=== PATIENT | female | born 1960 | race Caucasian/White ===

== ENCOUNTER 2022-10-15 16:02 | Outpatient (REF) | payer BC, SELFPAY ==
[2022-10-15 22:14] LABS: Rheumatoid Factor <8.6 IU/mL (<12.0)
[2022-10-18 07:50] LABS: IgE <2 IU/mL (<158)
[2022-10-18 09:07] LABS: Cyclic Citrullinated Peptide <2.5 U/mL (<5.0)
[2022-10-18 12:22] LABS: IgA 192 mg/dL (85-499); IgG 1037 mg/dL (610-1616); IgM 237 mg/dL (35-242)
[2022-10-18 14:18] LABS: ANA Interpretation Negative (Negative)
[2022-10-20 15:54] LABS: Alter tenuis/alternata IgG 6.6 mcg/mL (<12.0); Aspergillus fumigatus IgG 74.8 mcg/mL (<46.0); Aureobasidium pullulans IgG 8.9 mcg/mL (<18.0); Laceyella sacchari IgG <2.0 mcg/mL (<25.0); Micropolyspora faeni IgG <2.0 mcg/mL (<5.0); Penicillium Chrysogenum IgG 31.7 mcg/mL (<22.0); Phoma betae IgG 8.8 mcg/mL (<8.0)
== END 2022-10-15 16:03 | disposition home or self-care (01) ==
LOC: LBN 16:02
PROVIDERS: PCP Neuromusculoskeletal Medicine & OMM; Visit Provider Student in an Organized Health Care Education/Training Program
DX: J84.9 Interstitial pulmonary disease, unspecified (principal); J18.9 Pneumonia, unspecified organism
CPT/HCPCS: 82784; 86001; 86200; 82785; 82787; 86038; 86431

== ENCOUNTER 2023-08-12 10:18 | Outpatient (CLI) | payer BC, SELFPAY ==
[2023-08-15 18:08] LABS: Alternaria Tenuis IgE <0.10 kU/L (<0.70); Aspergillus Fumigatus IgE <0.10 kU/L (<0.70); Bermuda Grass IgE <0.10 kU/L (<0.70); Cocklebur IgE <0.10 kU/L (<0.70); Cockroach IgE <0.10 kU/L (<0.70); Cottonwood IgE <0.10 kU/L (<0.70); D Farinae IgE <0.10 kU/L (<0.70); D Pteronyssinus IgE <0.10 kU/L (<0.70); Eastern Sycamore IgE <0.10 kU/L (<0.70); Elm IgE <0.10 kU/L (<0.70); Epicoccum purpurascens IgE <0.10 kU/L (<0.70); Fusarium moniliforme, IgE <0.10 kU/L (<0.70); Giant Ragweed IgE <0.10 kU/L (<0.70); Lamb's Quarter IgE <0.10 kU/L (<0.70); Oak IgE <0.10 kU/L (<0.70); Penicillium chrysogenum IgE <0.10 kU/L (<0.70); Red Sorrel IgE <0.10 kU/L (<0.70); Rough Pigweed IgE <0.10 kU/L (<0.70); Short Ragweed IgE <0.10 kU/L (<0.70); Silver Birch IgE <0.10 kU/L (<0.70); Stemphyllium IgE <0.10 kU/L (<0.70); Timothy Grass IgE <0.10 kU/L (<0.70); Walnut Tree IgE <0.10 kU/L (<0.70); Wormwood IgE <0.10 kU/L (<0.70)
[2023-08-15 19:57] LABS: Cat Epithelium IgE <0.10 kU/L (<0.70); Cladosporium IgE <0.10 kU/L (<0.70); Dog Dander IgE <0.10 kU/L (<0.70)
[2023-08-17 16:29] LABS: CLASS 0; Rhodotorula IgE <0.35 kU/L (<0.35)
[2023-08-17 16:33] LABS: CLASS 0; Cedar Red IgE <0.10 kU/L (<0.35)
== END 2023-08-12 10:19 | disposition home or self-care (01) ==
LOC: LBO 10:19
PROVIDERS: Visit Provider Otolaryngology Otolaryngology/Facial Plastic Surgery
DX: J18.9 Pneumonia, unspecified organism (principal); J30.9 Allergic rhinitis, unspecified; R91.1 Solitary pulmonary nodule
CPT/HCPCS: 36415; 86003

== ENCOUNTER 2024-01-30 10:59 | Day surgery (SDC) | payer BC, SELFPAY ==
[2024-01-30] VITALS (8 sets, daily range): BP systolic 115–131; BP diastolic 59–91; PULSE 49–59; RESP 11–20; TEMP 36.4–36.7; O2SAT 97–99; BMI 17.1
--- NOTE | 2024-01-30 11:35 | W.ANESPRE ---
General Info Date of Service Date Performed: 01/30/24 Height: 5 ft 6 in Weight: 48.2 kg Body Mass Index (BMI): 17.1 Surgical Procedure: Operation Date: 01/30/24 12:10 Proposed Procedure Side Surgeon p Bronchoscopy w/FELI Granados MD Meds Allergies and Home Medications Allergies Allergy/AdvReac Type Severity Reaction Status Date / Time levofloxacin AdvReac Unknown Throat Verified 01/30/24 11:21 tightness morphine AdvReac Unknown vomiting Verified 01/30/24 11:21 Home Medication Medication Instructions Recorded acetaminophen 500 mg tablet 500 mg PO DIRECTED 09/08/22 albuterol sulfate 90 mcg/actuation 2 puff inhalation Q4H PRN 09/08/22 aerosol inhaler fluticasone furoate 200 1 inh inhalation DAILY 09/08/22 mcg-vilanterol 25 mcg/dose inhalation powder (Breo Ellipta) ibuprofen 200 mg tablet See Rx Instructions PO DIRECTED 09/08/22 levothyroxine 50 mcg tablet 50 mcg PO DAILY 09/08/22 (Euthyrox) metoprolol succinate 25 mg 25 mg PO DAILY 12/14/22 tablet,extended release 24 hr ipratropium 0.5 mg-albuterol 3 mg 3 ml inhalation QID PRN 12/15/23 (2.5 mg base)/3 mL nebulization soln Current Visit Medications: Current Medications Generic Name Dose Route Start Last Admin Trade Name Freq PRN Reason Stop Dose Admin Albuterol/Ipratropium 3 ml 01/30/24 10:44 Albuterol/Ipratropium 3 Ml Upd Vial UPD 02/29/24 10:43 Q2H PRN PRN Ringer's Solution 1,000 mls @ 30 mls/hr 01/30/24 06:00 IV 01/30/24 23:59 INFUSION DANITA IV Miscellaneous Supplies 1 each 01/30/24 06:00 Iv Access IV 01/30/24 23:59 DIRECTED DANITA Sodium Chloride 0 ml 01/30/24 06:00 Normal Saline Flush 10 Ml Syr IV 01/30/24 23:59 PRN PRN Sodium Chloride 0 ml 01/30/24 06:00 Normal Saline 10 Ml Vial IJ 01/30/24 23:59 DIRECTED PRN Sterile Water 0 ml 01/30/24 06:00 Water,Injection,Sterile 10 Ml Vial IJ 01/30/24 23:59 DIRECTED PRN PFSH Active Problems Active Problems: Problem Status Onset Code Allergic rhinitis J30.9 Asthma J45.909 Hypersensitivity pneumonitis J67.9 Recurrent pneumonia J18.9 Pulmonary nodule R91.1 Interstitial lung disease J84.9 Uterovaginal prolapse, incomplete N81.2 Sighing respiration R06.89 Pneumonia J18.9 Pain in right hand M79.641 Neck pain M54.2 Hypothyroidism E03.9 Hyperlipidemia E78.5 Ganglion and cyst of synovium, tendon and bursa M67.49, M67.89, M71.39 Dupuytren's disease of palm M72.0 Cough R05.9 Closed fracture of base of metacarpal bone S62.319A Chest pain R07.9 Bronchiectasis J47.9 Anemia D64.9 Medical History Medical History Pulmonary nodule, right Lung nodule seen on imaging study Surgical History Surgical History H/O: hysterectomy History of appendectomy 1977 H/O hernia repair 2002 History of colonoscopy 03/05/19 Tobacco Smoking/Tobacco Use Status: Never Alcohol Alcohol Intake: current Alcohol intake frequency: a few times a month Alcohol type: wine Substance Use Substance use type: does not use Vital Signs and Lab Results Vital Signs Most Recent Vital Signs in EMR: Most Recent Vital Signs Temp Pulse Resp BP Pulse Ox 36.5 C 56 L 16 127/68 98 01/30/24 11:18 01/30/24 11:18 01/30/24 11:18 01/30/24 11:18 01/30/24 11:18 Lab Results Blood Type / Crossmatch: No Data to Display Complete Blood Count: No Data to Display Complete Metabolic Panel: No Data to Display Liver Function Panel: No Data to Display Coagulation Panel: No Data to Display Cardiac Panel: No Data to Display Arterial Blood Gas: No Data to Display Venous Blood Gas: No Data to Display Pancreas Panel: No Data to Display Thyroid Panel: No Data to Display Infectious Disease: No Data to Display Blood Cultures: No Data to Display Toxicology Panel: No Data to Display Anesthesia Assessment and Plan Anesthesia History Personal History: No History of Anesthesia Complications Family History: No Family History of Anesthesia Complications Exercise Tolerance Exercise Tolerance: Metabolic Equivalents<4 Pertinent Negatives Pertinent Negatives: No Symptoms of GERD Cardiac & Pulmonary Exam Cardiac Exam: Normal S1/S2 Heart Sounds Pulmonary Exam: Other (Clear with decreased right base) Implantable Cardiac Device Does patient have a Pacemaker or an ICD?: No Airway Exam Known Difficult Airway: No Mallampati Class: 2 Mouth Opening: Normal (> 3cm) Thyromental Distance: Greater than 3 cm Neck Range of Motion: Full ROM Neck Circumference: Normal Teeth Condition: Normal Dentition ASA Classification ASA Score: ASA 2 Emergency Case?: No NPO Status NPO Status: NPO Clears >2 hours, Solids >8 hours Anesthesia Plan Resuscitation Status: Full Code Anesthesia Technique: General Anesthesia Airway Planned: Natural Airway Monitors Used: Standard Monitors
[2024-01-30] MEDS: Lactated Ringers 1,000 ML 30 ML IV (11:46)
--- NOTE | 2024-01-30 11:57 | W.PM.OP ---
Date of service: 01/30/24 Time of Service: 12:24 Operative Note Operative Note Refer to Anesthesia Record Procedure Description: Bronchoscopy Indication: Pulmonary consolidations Procedure performed: Flexible bronchoscopy with BAL Sedation plan: General Informed consent was obtained after the risks and benefits or the procedure were discussed. Anesthesia sedated and intubated the patient with an 8.0 ETT. A proper and complete OR compliant time out was performed. The therapeutic 6.2mm Olympus bronchoscope was inserted the endotracheal tube and into the airways, where 3cc in total of 1% topical lidocaine was used the anesthetize the airways. The trachea was midline and without lesion or injury. The mucosa appeared normal and there were no signs of tracheomalacia. The lilo was sharp. All bronchial subsegments were visualized within each lobe and showed normal anatomy without injury or lesion. There were some endobronchial outpouchings which were not vascularized and deemed to be likely cartilaginous and externally pushing. A bronchoalveolar lavage was performed in the LLL. A total of 120cc of saline was administered with a return of 35cc. The fluid was slightly cloudy in appearance with visible mucus plugging. The bronchoscope was then removed and the case terminated. The patient was taken to PACU in stable condition. Samples collected:LLL BAL, bronchial washings Testing ordered: cell diff, silver stain, cytopathology, bacterial, fungal and AFB cultures. Complications:None Claudia Granados MD Pulmonary & Critical Care Medicine
[2024-01-30] MEDS: Lidocaine 1% Pres-Free 5 ML VIAL (12:37)
--- NOTE | 2024-01-30 12:38 | PAPNONF_PTH ---
PATIENT: Greer Atkinson LOC: [facility] U#:[id number] AGE/SX: 63/F ROOM: RE01/30/[address]: Claudia Granados MD : 1960 BED: DIS: 01/30/2024 SPEC #: [id number] RECD: 01/30/24 13:17 STATUS: GIGI REQ #: [id number] JOSE DE JESUS: 01/30/24 12:[address]: Claudia Granados DEPT: [facility] Cytology RECD BY: Candace Hartman ENTERED: 01/30/24 13:18 SP TYPE: PAPLINO POOLE DR: Clark Mejia Tissues: 1 - BODY FLUID CYTO(NOT S/U/N/EM)[facility] Procedures: BODY FLUID CYTO(NOT SPU/UR/NIP/ENDOM)[facility] SPECIAL STAIN 1 Comments: [id number] (TV = 10 ml, SENT FRESH) (REFRIGERATED)
--- NOTE | 2024-01-30 13:51 | W.ANESPOSTOP ---
Postoperative Evaluation Date, Time and Location Date Performed: 01/30/24 Time Performed: 13:51 Patient Location: Day Surgery Unit Vital Signs Most Recent Imported Vital Signs: Most Recent Vital Signs Temp Pulse Resp BP Pulse Ox 36.6 C 49 L 18 119/59 L 97 01/30/24 13:47 01/30/24 13:47 01/30/24 13:47 01/30/24 13:47 01/30/24 13:47 Pain Score Most Recent Pain Score: Most Recent Pain Score Pain Level 0 01/30/24 13:47 Assessment Mental Status: Awake (Alert & Oriented to Patient Baseline) Airway and Respiratory Function: Patent airway with normal (patient baseline) respiratory exam Cardiovascular Function: Hemodynamically Stable Hydration Status: Adequately Hydrated Nausea & Vomiting: No Nausea or Vomiting Pain: Pt. Denies Any Pain Peripheral Nerve Block: Patient did not receive a nerve block
[2024-01-30 18:02] LABS: Lymphocytes Fluid Relative 31 %; Mono/Macrophage Fluid Relative 45 %; Neutrophils Fluid Relative 22 %
[2024-02-01 08:47] LABS: Gram Smear Result Neutrophils Present
[2024-03-22 09:32] LABS: AFB Culture Result See Comments
[2024-03-22 09:34] LABS: AFB Culture Result See Comments
[2024-03-23 15:02] LABS: Fungal Culture & Smear See Comments
[2024-03-23 15:04] LABS: Fungal Culture & Smear See Comments
== END 2024-01-30 14:32 | disposition home or self-care (01) ==
PROVIDERS: PCP Family Medicine; Visit Provider Student in an Organized Health Care Education/Training Program
PROC: 0BJ08ZZ Inspection of Tracheobronchial Tree, Via Natural or Artificial Opening Endoscopic (ICD-10-PCS; CPT 31622; principal; 2024-01-30 12:00)
DX: R91.1 Solitary pulmonary nodule (principal); J67.9 Hypersensitivity pneumonitis due to unspecified organic dust; Z87.01 Personal history of pneumonia (recurrent); B37.1 Pulmonary candidiasis; J84.09 Other alveolar and parieto-alveolar conditions
CPT/HCPCS: 31624; 80162; 87070; 87102; 87107; 87116; 87205; 87206; 88104; 88312; J1100; J2001; J2003; J2704; J3010

== ENCOUNTER 2024-08-16 15:29 | Outpatient (REF) | payer BC, SELFPAY ==
[2024-08-16 11:08] LABS: Abs Immature Grans 0.02 10^3/uL (0.0-0.06); Absolute Basophil Count 0.04 10^3/uL (0.0-0.2); Absolute Eosinophil Count 0.39 10^3/uL (0.0-0.7); Absolute Lymphocyte Count 1.36 10^3/uL (1.2-3.4); Absolute Monocyte Count 0.38 10^3/uL (0.1-0.8); Absolute Neutrophil Count 4.43 10^3/uL (1.2-6.7); Basophils % 0.6 %; Eosinophils % 5.9 %; HCT 39.3 % (36.0-46.0); HGB 12.8 g/dL (11.2-15.7); Immature Grans % 0.3 %; Lymphocytes % 20.5 %; MCH 29.5 pg (27.0-33.0); MCHC 32.6 % (32.0-36.0); MCV 91 fL (80-95); MPV 9.8 fL (8.0-11.0); Monocytes % 5.7 %; Platelet Count 246 10^3/uL (130-400); RBC 4.34 10^6/uL (3.93-5.22); RDW 13.3 % (11.7-14.6); WBC 6.62 10^3/uL (4.4-10.8)
== END 2024-08-16 15:30 | disposition home or self-care (01) ==
LOC: LBN 15:29
PROVIDERS: PCP Family Medicine; Visit Provider Physician Assistant Surgical
DX: J67.9 Hypersensitivity pneumonitis due to unspecified organic dust (principal); J45.909 Unspecified asthma, uncomplicated; R91.1 Solitary pulmonary nodule; J30.9 Allergic rhinitis, unspecified
CPT/HCPCS: 85025

== ENCOUNTER 2024-12-05 12:54 | Outpatient (REF) | payer BC, SELFPAY ==
[2024-12-05 12:46] LABS: Abs Immature Grans 0.05 10^3/uL (0.0-0.06); Absolute Basophil Count 0.07 10^3/uL (0.0-0.2); Absolute Eosinophil Count 0.38 10^3/uL (0.0-0.7); Absolute Lymphocyte Count 1.42 10^3/uL (1.2-3.4); Absolute Monocyte Count 0.76 10^3/uL (0.1-0.8); Absolute Neutrophil Count 7.46 10^3/uL (1.2-6.7); Basophils % 0.7 %; Eosinophils % 3.7 %; HCT 39.5 % (36.0-46.0); HGB 12.8 g/dL (11.2-15.7); Immature Grans % 0.5 %; MCH 29.9 pg (27.0-33.0); MCHC 32.4 % (32.0-36.0); MCV 92 fL (80-95); MPV 10.3 fL (8.0-11.0); Monocytes % 7.5 %; Neutrophils % 73.6 %; Platelet Count 217 10^3/uL (130-400); RBC 4.28 10^6/uL (3.93-5.22); RDW 14.1 % (11.7-14.6); RDW-SD 47.8 fL; WBC 10.14 10^3/uL (4.4-10.8)
[2024-12-05 13:31] LABS: TSH 0.91 uIU/mL (0.36-3.74); Vitamin B12 514 pg/mL (193-986); Vitamin D 25 Total 22 ng/mL (30-100)
[2024-12-05 13:48] LABS: FREE T4 0.88 ng/dL (0.76-1.46)
[2024-12-05 22:36] LABS: T3,Free 3.8 pg/mL (2.8-5.3)
== END 2024-12-05 12:55 | disposition home or self-care (01) ==
LOC: LBN 12:54
PROVIDERS: PCP Family Medicine; Visit Provider Physician Assistant Surgical
DX: J45.909 Unspecified asthma, uncomplicated (principal); J67.9 Hypersensitivity pneumonitis due to unspecified organic dust; R91.1 Solitary pulmonary nodule; E03.9 Hypothyroidism, unspecified
CPT/HCPCS: 82306; 82607; 84439; 84443; 84481; 85025

== ENCOUNTER 2025-04-17 14:49 | Outpatient (CLI) | payer BC, SELFPAY ==
--- NOTE | 2025-04-17 11:45 | DI.RAD_ITS ---
Exam(s) XR CHEST 2V PA LATERAL EXAM: XR CHEST 2V PA LATERAL CLINICAL HISTORY: cough, hypersensitivity pneumonitis J67.9 TECHNIQUE: 2D digital imaging was performed. Two views. COMPARISON: CR XR CHEST 2VW (D) from 09/11/2023 CR XR CHEST 1 VW from 11/25/[address] CHEST WO CONTRAST from 11/25/2023 FINDINGS: HEART: Normal size. Aorta: Not dilated. PULMONARY VASCULATURE: Normal. MEDIASTINUM: Unremarkable. LUNGS: Chronic interstitial changes, greater in the upper lobes. Patchy infiltrate noted above the left diaphragm. PLEURAL SPACE: No pleural effusion or pneumothorax. BONE:Unremarkable for age. SOFT TISSUES: Unremarkable. IMPRESSION: Findings suspicious for left lower lobe infiltrate. DATA REPOSITORY: RADIATION DOSE DELIVERED:
== END 2025-04-17 15:09 ==
LOC: DI 14:51
PROVIDERS: PCP Family Medicine; Visit Provider Internal Medicine Pulmonary Disease
DX: J67.9 Hypersensitivity pneumonitis due to unspecified organic dust (principal)
CPT/HCPCS: 71046

== ENCOUNTER 2025-04-17 19:29 | Outpatient (REF) | payer BC, SELFPAY ==
[2025-04-17 12:51] LABS: HCT 37.5 % (36.0-46.0); HGB 12.1 g/dL (11.2-15.7); MCH 29.6 pg (27.0-33.0); MCHC 32.3 % (32.0-36.0); MCV 92 fL (80-95); MPV 10.8 fL (8.0-11.0); Platelet Count 366 10^3/uL (130-400); RBC 4.09 10^6/uL (3.93-5.22); RDW 14.1 % (11.7-14.6); RDW-SD 47.4 fL; WBC 11.94 10^3/uL (4.4-10.8)
[2025-04-17 13:08] LABS: ALT 33 U/L (14-59); AST 20 U/L (15-37); Albumin 3.1 g/dL (3.4-5.0); Alkaline Phosphatase 184 U/L (46-116); Anion Gap 6.1 mmol/L (3-11); BUN 9 mg/dL (7-18); Bilirubin, Total 0.4 mg/dL (0.2-1.0); CO2 29.9 mmol/L (21.0-32.0); Calcium 9.4 mg/dL (8.5-10.1); Chloride 104 mmol/L (98-107); Estimated GFR 99.55 (mL/min/1.73m2); Glucose 129 mg/dL (74-106); Potassium 4.2 mmol/L (3.5-5.1); Sodium 140 mmol/L (136-145); Total Protein 6.5 g/dL (6.4-8.2)
[2025-04-23 10:27] LABS: 6-Methylmercaptopurine ribosid 4.85 nmol/mL/h (5.04-9.57)
== END 2025-04-17 19:30 | disposition home or self-care (01) ==
LOC: LBN 19:29
PROVIDERS: PCP Family Medicine; Visit Provider Internal Medicine Pulmonary Disease
DX: J67.9 Hypersensitivity pneumonitis due to unspecified organic dust (principal)
CPT/HCPCS: 80053; 82657; 85027